=== PATIENT | male | born 1995 | race Caucasian/White ===

== ENCOUNTER 2017-01-02 20:23 | Emergency (ER) | payer OTHER ==
[2017-01-02 21:11] VITALS: BP 141/94
== END 2017-01-02 23:06 | disposition home or self-care (01) ==
LOC: ED 20:23
DX: S91.331A Puncture wound without foreign body, right foot, initial encounter (principal); X58.XXXA Exposure to other specified factors, initial encounter; Y93.89 Activity, other specified; Y92.89 Other specified places as the place of occurrence of the external cause; Y99.8 Other external cause status
CPT/HCPCS: 90715

== ENCOUNTER 2017-09-20 20:45 | Emergency (ER) | payer OTHER ==
[~2017-09-20] VITALS: Ht 172.7 cm; Wt 80.7 kg
[2017-09-20 20:50] VITALS: Ht 172.7 cm; Wt 80.7 kg
[2017-09-20 22:45] VITALS: BP 138/81
== END 2017-09-20 22:45 | disposition home or self-care (01) ==
LOC: ED 20:45
PROC: 2W3MX1Z Immobilization of Left Lower Extremity using Splint (ICD-10-PCS; principal; 2017-09-20)
PROC: 3E023NZ Introduction of Analgesics, Hypnotics, Sedatives into Muscle, Percutaneous Approach (ICD-10-PCS; 2017-09-20)
DX: S93.402A Sprain of unspecified ligament of left ankle, initial encounter (principal); R03.0 Elevated blood-pressure reading, without diagnosis of hypertension; X58.XXXA Exposure to other specified factors, initial encounter; Y92.9 Unspecified place or not applicable
CPT/HCPCS: J1885